=== PATIENT | female | born 1945 | race Caucasian/White ===

== ENCOUNTER 2018-12-31 13:45 | Outpatient (CLI) | payer MEDICARE | END 2018-12-31 23:59 | disposition home or self-care (01) | LOC: RAD 13:45 | PROVIDERS: ATTEND Nurse Practitioner Family | DX: R13.12 Dysphagia, oropharyngeal phase (principal); R47.1 Dysarthria and anarthria | CPT/HCPCS: 74230 ==

== ENCOUNTER 2021-05-28 10:42 | Inpatient (IN) | payer MEDICARE ==
[~2021-05-28] VITALS: Ht 160 cm; Wt 79.4 kg
[~2021-05-28 10:42] MED LIST: ALLO100T PO; ASCO500T28 PO; ASPI-1 PO; ATOR40TA PO; BIOT5000 PO; DULO-31 PO; FERR-116 PO; FURO-150 PO; LEVO-145 PO; METO100T7 PO; NIFE30TA95 PO; ONDA4TAB6 PO; PANT-47 PO; POTA10TA36 PO; TRIH2TAB3 PO; VITA1TAB20 PO
[2021-05-28 11:24] LABS: CLARITY,URINE BLOODY (Clear); COLOR,URINE Red (Yellow); UA COLLECTION TYPE CLN CATCH MIDSTREAM
[2021-05-28 11:37] LABS: BACTERIA,URINE 4+ /HPF (Neg); MUCUS STRANDS FEW /LPF (Neg); RBC,URINE TNTC /HPF (0-2); SQUAMOUS EPITHELIAL CELL,UR NONE SEEN /LPF (FEW); TRANSITIONAL EPI CELLS,URINE FEW /HPF; WBC,URINE TNTC /HPF (0-4)
[2021-05-28 13:06] LABS: BASOPHILS % (AUTO) 0.4 % (0-1); EOSINOPHILS # (AUTO) 0.1 X10'3 (0-0.9); HEMATOCRIT 37.5 % (35.0-45.0); HEMOGLOBIN 12.3 g/dl (12.0-16.0); LYMPHOCYTES # (AUTO) 1.8 X10'3 (1.1-4.8); LYMPHOCYTES % (AUTO) 14.2 % (21-51); MEAN CORPUSCULAR HEMOGLOBIN 30.7 PG (27.0-31.0); MEAN CORPUSCULAR HGB CONC 32.9 g/dL (33.0-36.5); MEAN CORPUSCULAR VOLUME 93.3 FL (78-98); MEAN PLATELET VOLUME 7.8 FL (7.4-10.4); MONOCYTES # (AUTO) 0.9 X10'3 (0-0.9); MONOCYTES % (AUTO) 7.1 % (2-12); NEUTROPHILS # (AUTO) 9.7 X10'3 (1.8-7.7); NEUTROPHILS % (AUTO) 77.3 % (42-75); PLATELET COUNT 451 X10'3 (140-440); RED BLOOD COUNT 4.02 X10'6 (4.20-5.60); WHITE BLOOD COUNT 12.5 X10'3 (4.5-11.0)
[2021-05-28 13:08] LABS: ALANINE AMINOTRANSFERASE 46 U/L (12-78); ALBUMIN 3.5 G/DL (3.4-5.0); ALBUMIN/GLOBULIN RATIO 0.8 (1.1-1.5); ALKALINE PHOSPHATASE 137 IU/L (46-116); ANION GAP 6 (8-16); ASPARTATE AMINO TRANSFERASE 26 U/L (10-37); BILIRUBIN,TOTAL 0.6 MG/DL (0.1-1.0); BLOOD UREA NITROGEN 33 MG/DL (7-18); BUN/CREATININE RATIO 23.1 (6.6-38.0); CALCIUM 9.3 MG/DL (8.5-10.1); CHLORIDE 102 MMOL/L (99-107); CREATININE 1.43 MG/DL (0.40-0.90); GLUCOSE 156 MG/DL (70-104); MAGNESIUM 2.2 MG/DL (1.5-2.4); POTASSIUM 3.3 MMOL/L (3.5-5.1); SODIUM 140 MMOL/L (135-145); TOTAL CARBON DIOXIDE 31.9 MMOL/L (24-32); TOTAL PROTEIN 7.7 G/DL (6.4-8.2); eGFR 36 ML/MIN
[2021-05-28] MEDS ORDERED: CEPH-585 PO ×2 (16:22)
[2021-05-28] MEDS ORDERED: CefTRIAXone/D5W-Rocephin 1gm 50 ML IV ONE (16:30)
[2021-05-28] MEDS ORDERED: vancomycin/NS 1 GM ADD-VANTAGE 250 ML IV ONE (16:55)
[2021-05-28] MEDS ORDERED: HYDROcodone/acetaminophen 10/325mg tab PO PRN (18:35)
[2021-05-28] MEDS ORDERED: HYDROcodone/acetaminophen 5mg/325mg tablet PO PRN (18:35)
[2021-05-28] MEDS ORDERED: acetaminophen 325mg tablet PO PRN ×2 (18:35)
[2021-05-28] MEDS ORDERED: magnesium hydroxide 30ml (MOM) UD suspension PO PRN (18:35)
[2021-05-28] MEDS ORDERED: ondansetron/PF 4mg/2ml inj IV PRN (18:35)
[2021-05-28] MEDS ORDERED: mag hydrox/Alum hydrox/simeth 30ml oral suspension PO PRN (18:35)
[2021-05-28] MEDS ORDERED: ASPI-845 PO (18:45)
[2021-05-28] MEDS: potassium cl 20mEq in 1/2 NS 1,000 ML IV SCH (19:19)
[2021-05-28] MEDS: docusate sod 100mg capsule PO SCH (20:00)
[2021-05-28 22:45] VITALS: BP 144/74
[2021-05-29] MEDS: potassium cl 20mEq in 1/2 NS 1,000 ML IV SCH (04:35)
[2021-05-29 06:00] VITALS: BP 147/70
--- NOTE | 2021-05-29 06:33 | NUR ---
Patient in room [facility]. I have received report from Pedro hernandez and had the opportunity to ask questions and assume patient care.
[2021-05-29 06:41] LABS: ALANINE AMINOTRANSFERASE 42 U/L (12-78); ALBUMIN/GLOBULIN RATIO 0.8 (1.1-1.5); ALKALINE PHOSPHATASE 123 IU/L (46-116); ANION GAP 11 (8-16); ASPARTATE AMINO TRANSFERASE 31 U/L (10-37); BILIRUBIN,TOTAL 0.5 MG/DL (0.1-1.0); BLOOD UREA NITROGEN 26 MG/DL (7-18); CHLORIDE 106 MMOL/L (99-107); CHOL/HDL RATIO 3.3 (0.00-4.99); CHOLESTEROL 139 MG/DL (0-200); CREATININE 1.04 MG/DL (0.40-0.90); GLUCOSE 115 MG/DL (70-104); HDL CHOLESTEROL 42 MG/DL (35-60); LDL CHOLESTEROL 67 MG/DL (50-100); POTASSIUM 3.4 MMOL/L (3.5-5.1); SODIUM 143 MMOL/L (135-145); TOTAL CARBON DIOXIDE 26.2 MMOL/L (24-32); TOTAL PROTEIN 6.7 G/DL (6.4-8.2); TRIGLYCERIDES 178 MG/DL (20-135); eGFR 52 ML/MIN
--- NOTE | 2021-05-29 07:04 | NUR ---
Problems reprioritized. Patient report given, questions answered & plan of care reviewed with Vlad MOSS.
[2021-05-29] MEDS ORDERED: CefTRIAXone/D5W-Rocephin 1gm 50 ML IV SCH (08:00)
[2021-05-29] MEDS ORDERED: enoxaparin 40mg/0.4ml syringe SUBCUT SCH (08:00)
[2021-05-29 08:22] LABS: BASOPHILS # (AUTO) 0.1 X10'3 (0-0.2); BASOPHILS % (AUTO) 0.8 % (0-1); EOSINOPHILS # (AUTO) 0.1 X10'3 (0-0.9); EOSINOPHILS % (AUTO) 1.4 % (0-6); HEMATOCRIT 35.9 % (35.0-45.0); HEMOGLOBIN 12.1 g/dl (12.0-16.0); LYMPHOCYTES # (AUTO) 1.6 X10'3 (1.1-4.8); LYMPHOCYTES % (AUTO) 16.4 % (21-51); MEAN CORPUSCULAR HEMOGLOBIN 31.2 PG (27.0-31.0); MEAN CORPUSCULAR HGB CONC 33.7 g/dL (33.0-36.5); MEAN CORPUSCULAR VOLUME 92.6 FL (78-98); MEAN PLATELET VOLUME 8.3 FL (7.4-10.4); MONOCYTES # (AUTO) 0.7 X10'3 (0-0.9); MONOCYTES % (AUTO) 7.2 % (2-12); NEUTROPHILS # (AUTO) 7.3 X10'3 (1.8-7.7); NEUTROPHILS % (AUTO) 74.2 % (42-75); PLATELET COUNT 375 X10'3 (140-440); RED BLOOD COUNT 3.87 X10'6 (4.20-5.60); RED CELL DISTRIBUTION WIDTH 13.7 % (11.5-14.5); WHITE BLOOD COUNT 9.9 X10'3 (4.5-11.0)
--- NOTE | 2021-05-29 08:37 | NUR ---
Page Sent PAGER ID: [phone] MESSAGE: [phone] susan Brownlee, can I put in protocol for K pt has a K of 3.4. [id number] ganga
[2021-05-29] MEDS: docusate sod 100mg capsule PO SCH (08:41)
[2021-05-29] MEDS ORDERED: potassium Cl 40MEQ/1/2NS 520ml 520 ML IV PRN (09:55)
[2021-05-29] MEDS ORDERED: magnesium 4gm in 100ml NS 100 ML IV PRN (09:55)
[2021-05-29] MEDS ORDERED: magnesium Cl slow-release 64mg tablet PO PRN (09:55)
[2021-05-29] MEDS ORDERED: potassium Cl 20 mEq SR tablet PO PRN ×2 (09:55)
[2021-05-29] MEDS ORDERED: FLU VACC QS2021-22(6MOS UP)/PF 60 MCG/0.5 ML SYRINGE IM ONE (10:00)
[2021-05-29 11:00] VITALS: BP 120/89
[2021-05-29 11:11] LABS: MAGNESIUM 1.9 MG/DL (1.5-2.4); POTASSIUM 3.6 MMOL/L (3.5-5.1)
[2021-05-29] MEDS ORDERED: CIPR-202 PO (11:48)
--- NOTE | 2021-05-29 12:24 | NUR ---
PT IV WAS DC AND INTACT. ALL DISCHARGE INFO WAS GONE OVER WITH PT AND NO FURTHER QUESTIONS. PT WAS TAKEN TO THE LOBBY VIA WHEELCHAIR AND LEFT IN A PRIVATE VEHICLE WITH DAUGHTER.
[2021-05-29] MEDS ORDERED: VANCOMYCIN 750MG IV in NS 250 ML IV SCH (17:00)
[2021-05-29] MEDS ORDERED: vancomycin/NS 1 GM ADD-VANTAGE 250 ML IV SCH (17:00)
[2021-05-29] MEDS ORDERED: K and/or MAG REPLACEMENT MC SCH (20:00)
[2021-05-31] MEDS ORDERED: VANCOMYCIN LEVEL IV ONE (16:30)
== END 2021-05-29 13:00 | disposition home or self-care (01) | DRG 690 ==
LOC: ER 10:43 → ED HOLD 18:35 → EDBEDREQ 20:47 → SUR 3N 22:02
PROVIDERS: ADMIT Internal Medicine; ATTEND Internal Medicine
DX: N30.81 Other cystitis with hematuria (principal); N17.9 Acute kidney failure, unspecified; E78.00 Pure hypercholesterolemia, unspecified; I10 Essential (primary) hypertension; F17.200 Nicotine dependence, unspecified, uncomplicated; E66.9 Obesity, unspecified; E78.5 Hyperlipidemia, unspecified; M10.9 Gout, unspecified; Z68.31 Body mass index [BMI] 31.0-31.9, adult; Z23 Encounter for immunization; Z79.899 Other long term (current) drug therapy; Z79.82 Long term (current) use of aspirin; Z90.49 Acquired absence of other specified parts of digestive tract
CPT/HCPCS: 36415; 74176; 80053; 80061; 81001; 83036; 83605; 83735; 84132; 85025; 87040; 87077; 87081; 87088; 87186; 93005; 96365; 96368; 99285; G0378; J0696; J1650; J3370; J3480

== ENCOUNTER 2023-09-14 08:32 | Emergency (ER) | payer MEDICARE ==
[~2023-09-14] VITALS: Ht 160 cm; Wt 78.0 kg
[~2023-09-14 08:32] MED LIST changes: -ASPI-1 PO; +ASPI-845 PO; +NIFE-72 PO; -NIFE30TA95 PO; -ONDA4TAB6 PO; +POTA-206 PO; -POTA10TA36 PO
[2023-09-14 08:40] VITALS: TEMP 98.1
[2023-09-14 11:28] VITALS: BP 148/64; PULSE 61; RESP 16; O2SAT 97
== END 2023-09-14 11:30 | disposition home or self-care (01) ==
LOC: ER 08:33
DX: S40.012A Contusion of left shoulder, initial encounter (principal); S50.02XA Contusion of left elbow, initial encounter; I10 Essential (primary) hypertension; Z79.899 Other long term (current) drug therapy; Z79.82 Long term (current) use of aspirin; Z79.2 Long term (current) use of antibiotics; W19.XXXA Unspecified fall, initial encounter; Y93.89 Activity, other specified; Y92.89 Other specified places as the place of occurrence of the external cause; Y99.8 Other external cause status
CPT/HCPCS: 73030; 73080; 99284

== ENCOUNTER 2024-05-16 15:12 | Emergency (ER) | payer MEDICARE ==
[~2024-05-16] VITALS: Ht 160 cm; Wt 63.7 kg
[~2024-05-16 15:12] MED LIST changes: +VITA-290 PO; -VITA1TAB20 PO
[2024-05-16 15:26] VITALS: TEMP 96.8
[2024-05-16 15:56] LABS: BASOPHILS % (AUTO) 0.4 % (0-1); EOSINOPHILS % (AUTO) 0.1 % (0-6); HEMATOCRIT 37.6 % (35.0-45.0); HEMOGLOBIN 12.5 g/dl (12.0-16.0); LYMPHOCYTES # (AUTO) 1.5 X10'3 (1.1-4.8); LYMPHOCYTES % (AUTO) 15.2 % (21-51); MEAN CORPUSCULAR HGB CONC 33.3 g/dL (33.0-36.5); MEAN CORPUSCULAR VOLUME 96.3 FL (78-98); MEAN PLATELET VOLUME 7.8 FL (7.4-10.4); MONOCYTES # (AUTO) 0.5 X10'3 (0-0.9); MONOCYTES % (AUTO) 4.4 % (2-12); NEUTROPHILS # (AUTO) 8.1 X10'3 (1.8-7.7); NEUTROPHILS % (AUTO) 79.9 % (42-75); PLATELET COUNT 293 X10'3 (140-440); WHITE BLOOD COUNT 10.1 X10'3 (4.5-11.0)
[2024-05-16 16:06] LABS: ALANINE AMINOTRANSFERASE 115 U/L (12-78); ALBUMIN/GLOBULIN RATIO 0.9 (1.1-1.5); ALKALINE PHOSPHATASE 88 IU/L (46-116); ANION GAP 8 (8-16); ASPARTATE AMINO TRANSFERASE 54 U/L (10-37); BILIRUBIN,TOTAL 0.9 MG/DL (0.1-1.0); BLOOD UREA NITROGEN 35 MG/DL (7-18); BUN/CREATININE RATIO 19.1 (10.0-20.0); CALCIUM 9.1 MG/DL (8.5-10.1); CHLORIDE 99 MMOL/L (99-107); CREATININE 1.83 MG/DL (0.40-0.90); GLUCOSE 137 MG/DL (70-104); POTASSIUM 3.1 MMOL/L (3.5-5.1); SODIUM 138 MMOL/L (135-145); TOTAL CARBON DIOXIDE 31.3 MMOL/L (24-32); TOTAL PROTEIN 6.5 G/DL (6.4-8.2); eCRCL 21 ML/MIN; eGFR 27 ML/MIN
[2024-05-16 16:14] LABS: PRO BRAIN NATRIURETIC PEPTIDE 1183 PG/ML (0-450)
[2024-05-16 17:02] LABS: BILIRUBIN,URINE NEGATIVE (Neg); CLARITY,URINE CLOUDY (Clear); COLOR,URINE YELLOW (Yellow); GLUCOSE, URINE NEGATIVE (Neg); KETONES,URINE NEGATIVE (Neg); LEUKOCYTE ESTERASE ,URINE MODERATE (Neg); NITRITES, URINE NEGATIVE (Neg); OCCULT BLOOD,URINE NEGATIVE (Neg); PROTEIN,URINE 30 mg/dl (Neg); UROBILINOGEN,URINE 0.2 E.U/dL (0.2-1.0)
[2024-05-16 17:03] LABS: UA COLLECTION TYPE VOIDED
[2024-05-16 17:07] LABS: SQUAMOUS EPITHELIAL CELL,UR MODERATE /LPF (FEW)
[2024-05-16 17:08] LABS: BACTERIA,URINE 4+ /HPF (Neg); MUCUS STRANDS FEW /LPF (Neg); WBC CLUMPS,URINE MANY /HPF (NEGATIVE); WBC,URINE 50-100 /HPF (0-4)
[2024-05-16 17:09] LABS: RBC,URINE 0-2 /HPF (0-2)
[2024-05-16] MEDS: normal saline 1000ML IV soln IVB ONE (17:50)
[2024-05-16 18:28] VITALS: BP 128/70; PULSE 74; RESP 15; O2SAT 96
== END 2024-05-16 18:29 | disposition home or self-care (01) ==
LOC: ER 15:13
DX: R42 Dizziness and giddiness (principal); I95.1 Orthostatic hypotension; G70.00 Myasthenia gravis without (acute) exacerbation; E11.44 Type 2 diabetes mellitus with diabetic amyotrophy; F10.90 Alcohol use, unspecified, uncomplicated; E07.9 Disorder of thyroid, unspecified; Z79.899 Other long term (current) drug therapy; Z79.82 Long term (current) use of aspirin
CPT/HCPCS: 36415; 71045; 80053; 81001; 83880; 84484; 85025; 87088; 87186; 93005; 99285; J7030; 87077